=== PATIENT | female | born 1985 | race Asian ===

== ENCOUNTER 2020-05-14 06:34 | Day surgery (SDC) | payer OTHER ==
[2020-05-07 11:24] LABS: Absolute Lymphocytes (CBC) 2.3 K/uL (0.7-4.9); Basophils % 0.6 % (0-1.3); Hematocrit 34.4 % (36.0-45.0); MPV 8.5 fL (7.6-11.3); RBC Red Blood Cell Count 4.51 M/uL (3.86-4.86); Urine Appearance CLEAR; Urine Bilirubin NEGATIVE (NEG); Urine Blood 2+ (NEG); Urine Color YELLOW; Urine Glucose NEGATIVE (NEG); Urine Protein NEGATIVE (NEG); Urine Specific Gravity >=1.030 (1.005-1.030)
[2020-05-07 11:32] LABS: Urine Microscopic Reflex ORDER UMIC
[2020-05-07 11:41] LABS: Urine Bacteria NONE SEEN /HPF (<20)
[2020-05-07 11:42] LABS: Urine Culture Reflex Order NOT NEEDED
[2020-05-13 07:51] LABS: Specific Gravity >= 1.030 (1.005-1.030)
--- OUTSIDE RECORDS SUMMARY | 2020-05-14 06:36 | XMS REPORT | Clinical Summary ---
:1985 Author Organization [facility] Address [address] [place] [address] Care Team Providers Name Role Phone Asked, Pcp Primary Care Provider Unavailable Allergies Not on File Medications Not on file Active Problems Not on file Encounters Date Type Specialty Care Team Description 10/26/2019 Hospital Encounter Radiology Manolo Holley pational exposure MD Bryan to unspecified risk factor 10/26/2019 Travel 10/23/2019 Employee Health Employee Health Occupatio nal exposure to unspecified risk factor (Primary Dx) 10/23/2019 Travel after 05/14/2019 Social History Tobacco Use Types Packs/Day Years Used Date Never Assessed Sex Assigned at Date Recorded Not on file Last Filed Vital Signs Not on file Plan of Treatment Health Maintenance Due Date Last Done Comments CERVICAL CANCER SCREENING 09/09/2004 INFLUENZA VACCINE 01/27/2020 Procedures Procedure Name Priority Date/Time Associated Diagnosis Comme nts XR CHEST 1 VW Routine 10/26/2019 2:27 Occupational exposure R esults for this PM CDT to unspecified risk procedur e are in factor the results section. TB IN-TUBE Routine 10/23/2019 9:08 Occupational exposure Re sults for this QUANTIFERON PLUS AM CDT to unspecified risk proc edure are in factor the results section. after 05/14/2019 Results XR Chest 1 Vw (10/26/2019 2:27 PM CDT) Specimen Narrative Performed At EXAMINATION: XR CHEST 1 VW [facility] CLINICAL HISTORY: 34 years Female Z57.9 Occupational exposure to unspecified risk factor, Tuberculosis screen positiv e PPD or IGRA asymptomatic COMPARISON: None. IMPRESSION: The lungs are clear. The cardiomediastinal silhouette is within normal limits. The bones are age-appropriate. Normal chest. [facility]-[id number] Procedure Note Hm Interface, Radiology Results Incoming - 10/26/2019 2:35 PM CDT EXAMINATION: XR CHEST 1 VW CLINICAL HISTORY: 34 years Female Z57.9 Occupational exposure to unspecified risk factor, Tuberculosis screen positive PPD or IGRA asymptomatic COMPARISON: None. IMPRESSION: The lungs are clear. The cardiomediastin al silhouette is within normal limits. The bones are age-appropriate. Normal chest. [facility]-[id number] Performing Organization Address City/State/ZIP Code Phon e Number [facility] [address] [place] [address] TB IN-TUBE Quantiferon plus (10/23/2019 9:08 AM CDT) Quantitative NIL 0.160 IU/mL [facility] Quantitative TB1 >10.000 IU/mL [facility] Quantitative TB2 >10.000 IU/mL [facility] Quantitative mitogen >10.000 IU/mL [facility] Quant TB1-NIL >10.000 IU/mL [facility] Quant TB2-NIL >10.000 IU/mL [facility] Quantitative >10.000 IU/mL [facility] mitogen-NIL REF LAB Qualitative Positive [facility] interpretation Comment: REF LAB Results are POSITIVE when either of the following cond itions are met: 1.Nil <= 8.0 AND TB1-Nil >= 0.35 AND >= 25% of Nil (TB 2 is any value) or 2.Nil <= 8.0 AND TB2-Nil >= 0.35 AND >= 25% of Nil (TB 1 is any value) Results are NEGATIVE when all of the following conditi ons are met: 1.Nil <= 8.0 2.TB1-Nil and TB2-Nil < 0.35 or [>= 0.35 AND < 25% of Nil] 3.Mitogen-Nil >= 0.50 Results are INDETERMINATE under either of the followin g conditions: 1a.Nil <= 8.0 AND Mitogen-Nil < 0.50 AND 1b 1b.Both TB1-Nil AND TB2-Nil < 0.35 or [>= 0.35 AND <25 % of Nil] 2.Nil > 8.0 Warnings and Limitations 1)A negative QFT-Plus result does not preclude the pos sibility of M. tuberculosis infection or tuberculosis disease: False- negative results can be due to stage of infection (e.g., specimen obtai victorino prior to the development of cellular immune response), co-morbid co nditions that affect immune function, incorrect handling of the bloo d collection tubes following venipuncture, incorrect performance of the assay, or other individual immunological variables. Heterophile antibodies or non-specific IFN-gamma production from other inflammat ory conditions may mask specific responses to ESAT-6 or CFP-10 peptides. 2)A positive QFT-Plus result should not be the sole or definitive basis for determining infection with M. tuberculosis. Incorrect performance of the assay may cause false-positive QFT- Plus results. A positive QFT-Plus result should be followed by [facility] medical evaluation for active TB disease (e.g., Acid Fast Baci lli smear and culture, chest X-ray). 3)While ESAT-6 and CFP-10 are absent from all BCG stra ins and from most known nontuberculous mycobacteria, it is possible that a positive QFT-Plus result may be due to infection by M. kansasii, M. szulgai, or M. marinum. If such infections are suspect ed, alternative tests should be performed. 4)A false-negative QFT-Plus result can be caused by in correct blood sample collection or improper handling of the specimen affecting lymphocyte function. Please refer to Specimen Collecti on and Handling section, page 17, for correct handling of the blood sp ecimens. Delay in incubation may cause false negative or indeterminat e results, and other technical parameters may affect ability to d etect a significant IFN-gamma response. 5)The effect of lymphocyte count on reliability of QFT -Plus results is unknown. Lymphocyte counts may vary over time for a ny individual person, and from person to person. The minimum number of lymphocytes required for a reliable test result has not been estab lished and may also be variable. 6)A positive QFT-Plus result can suggest and support t he diagnosis of tuberculosis disease. ESAT-6 and CFP-10 are present in M. tuberculosis, but infections by other mycobacteria, in cluding M. kansasii, M. szulgai, and M.marinum may also cause pos itive results. Other diagnostic evaluations (e.g., AFB smear and cult ure, chest X-ray) besides QFT-Plus are needed to confirm tuberculosis di sease. 7)The predictive value of a negative QFT-Plus result i n immunosuppressed persons has not been determined. Specimen Blood Performing Organization Address City/State/ZIP Code Phon e Number [facility] DEPARTMENT OF PATHOLOGY AND [address] [place] [phone] [facility] MEDICINE [facility] after 05/14/2019 Advance Directives For more information, please contact: [phone] Type Date Recorded Patient Executive Producer Promos Explanati on Advance Directives, Living Will and Medical Power of Vocational Teacher
--- OUTSIDE RECORDS SUMMARY | 2020-05-14 06:36 | XMS REPORT | Continuity of Care Document ---
:1985 Author Organization [facility] t Address [address] [place] [address] Care Team Providers Name Role Phone Asked, Pcp Primary Care Physician Unavailable Kishan DOMINGO, Bryan Attending Clinician Problems This patient has no known problems. Allergies, Adverse Reactions, Alerts This patient has no known allergies or adverse reactions. Social History Social Habit Start Date Stop Date Quantity Comments Source Sex Assigned At Shawna ston [facility] Medications This patient has no known medications. Procedures Procedure Date / Time Performed Performing Clinician Sourc e XR CHEST 1 VW 2019-10-26 14:27:29 Joan Holley on [facility] TB IN-TUBE QUANTIFERON 2019-10-23 09:08:00 Joan Holley Britt [facility] PLUS Plan of Care Planned Activity Planned Date Details Comments Source Future Scheduled 2020-01-27 INFLUENZA VACCINE Jenn tenorio [facility] Test 00:00:00 [code = INFLUENZA VACCINE] Future Scheduled 2004-09-09 Screening for [facility] thodist Test 00:00:00 malignant neoplasm of cervix (procedure) [code = 401597240] Encounters Start End Encounter Admission Attending Care Care Encounter Source Date/Time Date/Time Type Type Clinicians Facility Department ID 2019-10-26 2019-10-26 Outpatient KISHAN [facility] [id number] [place] 00:00:00 00:00:00 JOAN Montejo [facility] 2019-10-23 2019-10-23 Outpatient [facility] [id number] [place] 00:00:00 00:00:[address] Results Test Description Test Time Test Comments Results Result Sourc e Comments XR Chest 1 Vw 2019-09-29 [facility] 0 [address] 14:32:28 - 10/26/2019 2:35 PM CDTEXAMINATION: XR CHEST 1 VWCLINICAL HISTORY: 34 years Female Z57.9 Occupational exposure to unspecified risk factor, Tuberculosis screen positive PPD or IGRA asymptomaticCOMPARISON : None.IMPRESSION:The lungs are clear. The cardiomediastinal silhouette is within normal limits. The bones are age-appropriate.Normal chest. [id number] M TB IN-TUBE Quantiferon plus 2019-10-25 13:37:53 Test Item Value Reference Range Interpretation Comme nts Quantitative NIL (test code = 0.160 IU/mL 5322) Quantitative TB1 (test code = >10.000 IU/mL 5501) Quantitative TB2 (test code = >10.000 IU/mL 5502) Quantitative mitogen (test code = >10.000 IU/mL 5324) Quant TB1-NIL (test code = 5503) >10.000 IU/mL Quant TB2-NIL (test code = 5504) >10.000 IU/mL Quantitative mitogen-NIL (test >10.000 IU/mL code = 5326) Qualitative interpretation (test Positive Results are POSITIVE when either of code = 5327) the following c onditions are met:1.Nil <= 8. 0 AND TB1-Nil >= 0.35 AND >= 25% of Nil (TB2 is any value) or2.Nil <= 8.0 AND TB2-Nil >= 0.35 AND >= 25% of Nil (TB1 is any value)Resul ts are NEGATIVE when all of the foll owing conditions are met:1.Nil <= 8.02.TB1-Nil and TB2-Nil < 0.35 or [>= 0.35 AND < 25% of Nil]3.Mi togen-Nil >= 0.50Results are INDETERMINATE under either of the f ollowing conditions:1a.N il <= 8.0 AND Mitogen-Nil < 0 .50 AND 1b1b.Both TB1-Nil AND TB2 -Nil < 0.35 or [>= 0.35 AND <25% o f Nil]2.Nil > 8.0Warnings and Limitations1)A negative QFT-Pl us result does not preclude the po ssibility of M. tuberculosis in fection or tuberculosis di sease: False-negative results can be due to stage of inf ection (e.g., specimen obtain ed prior to the development of cellular immune response), co-m orbid conditions that affect imm une function, incorrect handl ing of the blood collection tube s following venipuncture, i ncorrect performance of the assay, o r other individual immunological v ariables. Heterophile ant ibodies or non-specific IF N-gamma production from other infl ammatory conditions may mask specif ic responses to ESAT-6 or CFP-1 0 peptides.2)A positive QFT-Pl us result should not be the sole or definitive basis for determining inf ection with M. tuberculosis. I ncorrect performance of the assay ma y cause false-positive QFT-Plus results. A positive QFT-Pl us result should be followed by fur ther medical evaluation for active TB disease (e.g., Acid Fas t Bacilli smear and culture, chest X-ray).3)While ESAT-6 and CFP- 10 are absent from all BCG strains and from most known nontuberculous mycobacteria, it is possible that a positive QFT-Plus result may be d ue to infection by M. kansasii, M. szulgai, or M. marinum. If suc h infections are suspected, alte rnative tests should be performed.4) A false-negative QFT-Plus result can be caused by incorrect blood sample collection or improper gaytan dling of the specimen affect ing lymphocyte function. Pleas e refer to Specimen Collection and Handling section, page 17, for co rrect handling of the blood speci mens. Delay in incubation may cause false negative or indeterminat e results, and other technical carroll eters may affect ability to dete ct a significant IFN-gamma respo nse.5)The effect of lymphocyte coun t on reliability of QFT-Plus result s is unknown. Lymphocyte coun ts may vary over time for any in dividual person, and from person to person. The minimum number of lymph ocytes required for a reliable test result has not been established and may also be variable.6)A po sitive QFT-Plus result can sugg est and support the diagnosis of tu berculosis disease. ESAT-6 and CFP- 10 are present in M. tuberculosis, b ut infections by other mycobacte alec, including M. kansasii, M. sz ulgai, and M.marinum may also cause positive results. Other diagnosti c evaluations (e.g., AFB smear and c ulture, chest X-ray) besides QFT-Plu s are needed to confirm tubercu losis disease.7)The predictive valu e of a negative QFT-Plus result in immunosuppressed persons has not been determined. Balwinder Winn
[2020-05-14] MEDS ORDERED: NA CHLORIDE 0.9% 1,000 ML ONE (07:08)
[2020-05-14] MEDS ORDERED: BUPIVACAINE 0.25% PF 30 ML VIAL ONE (07:08)
[2020-05-14] MEDS ORDERED: Ringers Lactate 1,000 ML IV ONE (07:13)
[2020-05-14] MEDS ORDERED: SCOPOLAMINE HYDROBROMIDE PATCH TD ONE (07:13)
[2020-05-14] MEDS ORDERED: propofoL 200 MG/20 ML VIAL IV ONE (07:21)
[2020-05-14] MEDS ORDERED: ROCURONIUM 50 MG/5 ML VIAL IV ONE (07:22)
[2020-05-14] MEDS ORDERED: MIDAZOLAM HCL 2 MG/2 ML INJ ONE (07:22)
[2020-05-14] MEDS ORDERED: dexAMETHasone 10 MG/ML VIAL ONE (07:22)
[2020-05-14] MEDS ORDERED: LIDOCAINE 2% MPF 5 ML VIAL ONE (07:22)
[2020-05-14] MEDS ORDERED: FENTANYL CITR 250 MCG/5 ML ONE (07:22)
[2020-05-14] MEDS ORDERED: ONDANSETRON 4 MG/2 ML VIAL ONE ×2 (07:22→12:54)
[2020-05-14] MEDS ORDERED: GLYCOPYRROLATE 0.2 MG/ML SYR ONE (08:46)
[2020-05-14] MEDS ORDERED: METHYLENE BLUE 0.5% 10 ML AMP ONE (08:50)
[2020-05-14] MEDS: Ringers Lactate 1,000 ML IV ONE ×2 (08:52→08:58)
[2020-05-14] MEDS ORDERED: CEFAZOLIN SODIUM 1 GM/VIAL ONE (09:52)
[2020-05-14] MEDS ORDERED: KETOROLAC 30 MG/ML INJ ONE (10:49)
[2020-05-14] MEDS: HYDROMORPHONE HCL 1 MG/ML INJ ONE ×2 (11:59→12:04)
[2020-05-14] MEDS ORDERED: HYDROCODONE/APAP 5/325 MG TAB ONE (12:54)
[2020-05-14 12:59] VITALS: TEMP 97
[2020-05-14 14:33] VITALS: BP 108/77; O2SAT 96
--- NOTE | 2020-05-15 00:50 | OP ---
Surgeon: KRISS LUNSFORD Indication For Consult: The 34-year-old female was undergoing laparoscopic evaluation for endometrio sis along with the dissection necessary to deal with that problem. Dr. Antonio encountered the left ureter and was concerned about the proximity and the density of the adhesions in that region. She t hus requested ureteral stents to be placed to help guide and prevent an advertent ureteral injury. Procedure Note: Using a 23-St Helenian rigid cystoscope and a 5-St Helenian ureteral access catheter, her uret hra was traversed until her bladder was entered. I distended the bladder just enough to visualize th e ureteral orifices, which were orthotopic within the trigone, and I was able to navigate a 5-St Helenian ureteral access catheter into the ureteral orifice on the right side and place it with ease up the ur eter and into the putative collecting system. On the left side, the ureteral orifice was a bit more stenotic, and so a Sensor wire was required in order to navigate the tip of a separate 5-St Helenian urete ral access catheter into the ureteral orifice on the left side. I was then able to place this easily up the ureter into the putative collecting system. I then placed both of these catheters to gravity drainage within the indwelling 16-St Helenian urethral Solis catheter using a 14-gauge Angiocath to guide the passage. The catheter was reconnected to a floor bag and gravity drainage, and her bladder was decompressed. The remainder of the procedure and operative note will be dictated by Dr. Antonio. ANDREA/MODL Voice ID: [id number] Report ID: [id number]
--- NOTE | 2020-05-15 21:07 | OP ---
Date of Procedure: 05/14/2020 Surgeon: Shy Antonio MD All Source Intelligence Analyst: General ludwig. Preoperative Diagnoses: Menorrhagia, dysmenorrhea, dyspareunia, and infertility. Postoperative Diagnoses: Menorrhagia, dysmenorrhea, dyspareunia, infertility, deep infiltrating endo metriosis of bilateral uterosacral ligaments, and endometrial polyp and cervical polyp. Procedures Performed: 1.Diagnostic hysteroscopy, followed by operative hysteroscopy, polypectomy, dilation and curettage, cervical polypectomy. 2.Diagnostic laparoscopy, extensive endometriosis excision, bilateral uterosacral ligaments and on t he cul-de-sac, then bilateral ureterolysis, chromotubation. Intraoperative Consultation: Dr. Dwyer, Urology, for bilateral ureteric stent placement and removal with cystoscopy. Specimens: Endometriosis, right ovary, and bilateral uterosacral ligaments, endometrial polyp, endom etrial curettings, and cervical polyp. Estimated Blood Loss: Minimal. Complications: None. Condition: Stable. Drains: None. Estimated Blood Loss: 50. Findings: Endometriosis on both uterosacral ligaments, severely fibrotic with an endometriotic nodul e on the left side larger than the right. However, the endometriosis and scarring ways much more dis neida, very close to the vaginal wall on the right side, it was on the left, it was on the ligament sli ghtly distal to the attachment. The excision of the nodule on the left side was complete. On the ri ght side, it was about 85% removal. Bilateral ureterolysis had to be performed safely after the plac ement of the stents in order for me to be able to excise this and also release the cul-de-sac. Suspe cted pale colored implants on the right ovarian surface and they were excised. In the uterine cavity, there was a posterior wall polyp that was excised with the help of scissors co mpletely. Then, cervical polyp had to be removed completely as well. Curettings were minimal. Chromotubation was performed and both tubes were patent and readily open. Description Of Procedure: After informed consent was verified, the patient was taken back to OR, idris lamonte in supine fashion on the operating table. General anesthesia was given. She was placed in dorsa l lithotomy position. Abdomen, vulva, vagina, and perineum were prepped and draped in a sterile fas ion. Solis was placed to drain the bladder. Speculum was placed to expose the cervix. Anterior lip was grasped with 2 Allis clamps. Time-out was done even before the start of the procedure and no an tibiotics were given as there was no indication for the elective procedure that was completely laparo scopic without any contamination by ACOG guidelines. However, later on due to the cystoscopy and katherine nt placement, she did receive 1 g of Ancef. Speculum was placed to expose the cervix. Anterior lip was grasped with 2 Allis clamps. Diagnostic SlimLine hysteroscope was used to enter the uterine cavity, past the cervical polyp from the right la teral wall of the cervix, past this went into the uterine cavity and the endometrial polyp with a connor y thick stalk was present in the posterior wall close to the left side. Then, the diagnostic sheath was changed to an operative sheath and scissors were placed through this. The base of the polyp was cut. Then using polyp graspers through the same channel after removing the scissors, the polyp was g rasped and removed in its entirety, it was about 1 cm. After re-looking inside the cavity, there was excellent hemostasis and no other abnormalities were se en. The lining was thick. Both tubal ostia were well visualized and no cavity distortion. The scop e was removed after checking the attachment of the polyp. The base of the polyp was scraped with the tip of the scope and the scope was removed, and using Juan Jose forceps targeting the area of the poly p, the polyp was grasped and removed completely, and the scope was placed again and made sure that th e removal was complete, and once this was ensured, diagnostic VCare was introduced into the uterus, D and C were not performed at this time as there was time for chromotubation which could be affected d ue to any freely-floating endometrial tissue if the biopsy was performed first. Plan was to do this at the end of the procedure. Then, I went up to perform the laparoscopy. 1 cm infraumbilical incision was made with a scalpel usi ng the open laparoscopy technique. Fascia was incised and tagged with 0 Vicryl sutures on both sides . Peritoneum entered sharply. S-retractor was placed. Marisol introduced. Insufflated adequately. Site of entry checked, unremarkable. Upper abdominal surfaces were all closely examined. No eviden ce of any endometriosis. The patient was placed in Trendelenburg 5 mm suprapubic and two 5 mm left l ower and right lower quadrant ports were placed under direct vision after going inside and surveying both ovaries mostly unremarkable, but utero-ovarian ligament had severe contraction and fibrosis most likely from attachment all the way down to the uterosacral ligament. The uterosacral ligament was a ttached to the posterior cul-de-sac and to the top of the vagina. Distortion was much more on the le ft side than on the right. The ureter appeared to be well visualized above the level of the ureteric tunnel but the level of the ureteric tunnel. It was difficult to discern the distance between the e ndometriotic implant and this failed. After identifying the lateral wall and area of peritoneum between the ureter and the pelvic sidewall at least from the mid ligament, the peritoneum was opened up sharply with scissors. Once this was do ne, the ureter was identified and it was left on the side wall dissecting the uterosacral away from i t. Then, once all the dissection was performed all the way to the ureteric tunnel where the ureter w as exiting the pelvis underneath the uterine artery, went on to dissect this implant medially identif shruthi the uterine artery. Then, posterior cul-de-sac was freed up by sharp dissection and using sciss ors, and once this was released, the implant was isolated. Then, the implant was excised from all di rections and excised completely with the help of monopolar needle tip. Once all normal tissue was vi sualized, there was still some part of the uterosacral ligament intact that appeared to be completely free and soft without any nodular tissue on it. The specimen was handed out for permanent pathology . Hemostasis was excellent. The ureteric stents were placed before I started to work on the uretero lysis. Please look at Dr. Edwards' note for this. On the right side, the scar tissue was much more distal and it ways definitely scarring the area of t he peritoneum with the vessels and then this was all pulled together and closer to the ureteric tunne l. Once dissection was performed to separate this starting proximally and coming down distally separ ating the ureter to the lateral wall and uterosacral ligament to the medial wall, the implants on the uterosacral of the scar tissue there was really no clear implants left. This was removed without co mpletely detaching the uterosacral ligament. Then, the tissue that was folding over the cul-de-sac, peritoneum was also released, and the endometriosis was excised as best as possible from here; howeve r, some of it was definitely within the area of insertion of the uterosacral ligament. Giving this n ulliparous patient, an increased chance of prolapse was not needed given the extent of the cleanup fo r the endometriosis that was achieved at this point. So, thorough irrigation and suction were perfor med with copious amount of normal saline. Then, the utero-ovarian ligament was released from this an d the same thing on the opposite side as well. There was a lot more mobility of the uterus once this was done. Then, the pale implants on the right ovary were also excised with the help of the monopol ar tip. There were some hydropic changes on the surface of the peritoneum on the tube on the right s ana laura, but these were not consistent with endometriosis and did not need to be removed. Chromotubation was performed before the start of endometriosis excision and the tubes flushed easily and readily. After thorough irrigation and suction and all the pelvic structures were recognized, th ere was no evidence of any electrical, mechanical, or thermal injury to the ureters on both sides. T hen, the stents were taken out, Solis was removed after draining, all the trocars were removed under direct vision after adequately making sure that there was hemostasis at the site of entry and injecti ng with the 0.25% Marcaine at all 4 sites at entry and exit. The case was completed. Gas was desuff lated. Fascia at the umbilicus closed with the help of tag sutures tied together. Skin incision in the umbilicus with the help of 3-0 chromic and then 4-0 interrupted for all skin incisions . The Solis was removed as well as the stents. Then, the VCare was removed and D and C was performe d gently to get a good sample not with any intent of clearing out the tissue. Although the specimens are labeled appropriately, procedure was discussed appropriately with the yuniel pham. The case completed. Instrument, needle, and sponge counts correct at the end of the case. She w ill follow up with me in 1 week. All the findings were explained to the partner that she had consent ed for discussing her findings. We will discuss this again when she comes back to the office. SAUL Voice ID: [id number] Report ID: [id number]
== END 2020-05-14 13:50 | disposition home or self-care (01) ==
LOC: OR 06:34
PROVIDERS: ATTEND Obstetrics & Gynecology
PROC: 0UDB8ZZ Extraction of Endometrium, Via Natural or Artificial Opening Endoscopic (ICD-10-PCS; 2020-05-14)
PROC: 0UB44ZZ Excision of Uterine Supporting Structure, Percutaneous Endoscopic Approach (ICD-10-PCS; 2020-05-14)
PROC: 3E0P8KZ Introduction of Other Diagnostic Substance into Female Reproductive, Via Natural or Artificial Opening Endoscopic (ICD-10-PCS; 2020-05-14)
PROC: 0TJB8ZZ Inspection of Bladder, Via Natural or Artificial Opening Endoscopic (ICD-10-PCS; 2020-05-14)
PROC: 0TN74ZZ Release Left Ureter, Percutaneous Endoscopic Approach (ICD-10-PCS; 2020-05-14)
PROC: 0TN64ZZ Release Right Ureter, Percutaneous Endoscopic Approach (ICD-10-PCS; 2020-05-14)
PROC: 0UB98ZZ Excision of Uterus, Via Natural or Artificial Opening Endoscopic (ICD-10-PCS; principal; 2020-05-14 07:30)
DX: N92.0 Excessive and frequent menstruation with regular cycle (principal); N94.6 Dysmenorrhea, unspecified; D25.0 Submucous leiomyoma of uterus; N97.9 Female infertility, unspecified; D50.9 Iron deficiency anemia, unspecified; N84.0 Polyp of corpus uteri; N80.3 Endometriosis of pelvic peritoneum; Z20.828 Contact with and (suspected) exposure to other viral communicable diseases; N94.10 Unspecified dyspareunia
CPT/HCPCS: 36415; 81003; 81015; 81025; 85025; 86850; 86900; 86901; 88305; J0690; J1100; J1170; J2250; J2405; J2704; J3010; J7030; J7120; L0625; U0002